=== PATIENT | male | born 1995 | race Caucasian/White ===

== ENCOUNTER 2018-08-18 08:45 | Emergency (ER) | payer OTHER ==
[~2018-08-18] VITALS: Ht 200.7 cm; Wt 93.0 kg
[2018-08-18] MEDS: LORazepam INJ 2 MG/ML (ATIVAN) VIAL IVP ONE (09:21)
[2018-08-18] MEDS: NS IV 1000 ML 1,000 ML IV STA (09:21)
[2018-08-18 09:27] LABS: BASOPHILS % (AUTO) 1 % (0-10); EOSINOPHILS # (AUTO) 0.3 10^3/uL (0.0-0.3); EOSINOPHILS % (AUTO) 5 % (0-10); HEMATOCRIT 42 % (35-52); HEMOGLOBIN 14.4 G/DL (11.5-16.0); LYMPHOCYTES # (AUTO) 1.7 X 10^3 (1.0-4.0); LYMPHOCYTES % (AUTO) 28 % (12-44); MEAN CORPUSCULAR HEMOGLOBIN 29 PG (25-34); MEAN CORPUSCULAR HGB CONC 34 G/DL (32-36); MEAN CORPUSCULAR VOLUME 85 FL (80-99); MEAN PLATELET VOLUME 8.6 FL (7.4-10.4); MONOCYTES # (AUTO) 0.5 X 10^3 (0.0-1.0); MONOCYTES % (AUTO) 8 % (0-12); NEUTROPHILS # (AUTO) 3.6 X 10^3 (1.8-7.8); NEUTROPHILS % (AUTO) 59 % (42-75); PLATELET COUNT 206 10^3/uL (130-400); RED CELL DISTRIBUTION WIDTH 12.3 % (10.0-14.5)
--- NOTE | 2018-08-18 09:38 | ED General ---
General Chief Complaint: Neurological Problems Stated Complaint: CONVULSIONS History of Present Illness Date Seen by Provider: Aug 18, 2018 Time Seen by Provider: 09:17 This is a 23-year-old male with a history of depression on venlafaxine for several months, here for trembling in the bilateral legs and back that began at work today. He had a "head cold" with nasal congestion and mild headache yesterday, not abrupt in onset, not "worst of life", not associated with visual change or focal weakness, numbness, or tingling. He took some Sudafed yesterday and last night he took NyQuil. Today he did not take any medications says he was feeling fine. He did have a monster energy drink however he has had caffeine in the past so this is not new for him. He started to feel like his knees were while blinding, he felt like he was having some spasms in the feet and the legs and in the back. He was not exerting himself at work, he was walking around and making doughnuts, he decided to sit down and rest, he had a Dr. Ritter. Ultimately came to the medical clinic and was brought to the emergency department. Now he is still having some spasms in his toes but otherwise he feels fine. He remains without any visual change or focal weakness , numbness, or tingling. No incontinence or retention of urine or stool. No headache or neck pain or back pain. In the last month he has not had any illnesses like her cough or diarrhea. He occasionally will have alcohol but denies chronic use, he also denies use of drugs, he also denies abrupt discontinuation of any drugs or alcohol. Allergies and Home Medications Allergies Coded Allergies: No Known Drug Allergies (Unverified , 08/18/18) Patient Home Medication List Home Medication List Reviewed: Yes Review of Systems Review of Systems Constitutional: no symptoms reported EENTM: no symptoms reported Respiratory: no symptoms reported Cardiovascular: no symptoms reported Gastrointestinal: no symptoms reported Genitourinary: no symptoms reported Musculoskeletal: no symptoms reported Skin: no symptoms reported Psychiatric/Neurological: See HPI Hematologic/Lymphatic: No Symptoms Reported Immunological/Allergic: no symptoms reported Past Qqlteiq-Jqgurp-Pjgins Hx Past Med/Social Hx: Reviewed Nursing Past Med/Soc Hx Physical Exam Vital Signs Vital Signs - First Documented 08/18/18 08:50 Temp 98.9 Pulse 101 Resp 15 B/P (MAP) 146/102 (117) Pulse Ox 100 O2 Delivery Room Air Capillary Refill : Height, Weight, BMI Height: '" Weight: lbs. oz. kg; BMI Method: General Appearance: No Apparent Distress (awake, alert, good energy level, no visible discomfort) Eyes: Bilateral Eye PERRL, Bilateral Eye EOMI HEENT: Other (moist mucous membranes, pharynx is minimally erythematous with no edema, ulcers or exudate) Neck: Full Range of Motion, Supple Respiratory: Lungs Clear; No Rales, No Rhonci, No Stridor, No Wheezing Cardiovascular: Regular Rate, Rhythm, Normal Peripheral Pulses Gastrointestinal: Non Tender, Soft Back: No Vertebral Tenderness Extremity: Non Tender Neurologic/Psychiatric: Alert, Oriented x3, No Motor/Sensory Deficits, Normal Mood/Affect, catering and events manager II-XII Norm as Tested; No Abnormal Cerebellar Tests, No Abnormal Gait (patient's nurse at observed some unsteadiness with gait however at the time of my evaluation patient is inability steadily without assistance); Other (there is no abnormal motor activity observed at this time, reflexes 2 out of 4 symmetrically) Skin: Warm/Dry Progress/Results/Core Measures Suspected Sepsis SIRS Temperature: Pulse: Respiratory Rate: Laboratory Tests 08/18/18 09:15: White Blood Count 6.0 Blood Pressure / Mean: Laboratory Tests 08/18/18 09:15: Creatinine 1.16, Platelet Count 206, Total Bilirubin 1.0 Results/Orders Lab Results Laboratory Tests Test 08/18/18 09:15 Range/Units White Blood Count 6.0 4.3-11.0 10^3/uL Red Blood Count 4.92 4.35-5.85 10^6/uL Hemoglobin 14.4 11.5-16.0 G/DL Hematocrit 42 35-52 % Mean Corpuscular Volume 85 80-99 FL Mean Corpuscular Hemoglobin 29 25-34 PG Mean Corpuscular Hemoglobin Concent 34 32-36 G/DL Red Cell Distribution Width 12.3 10.0-14.5 % Platelet Count 206 130-400 10^3/uL Mean Platelet Volume 8.6 7.4-10.4 FL Neutrophils (%) (Auto) 59 42-75 % Lymphocytes (%) (Auto) 28 12-44 % Monocytes (%) (Auto) 8 0-12 % Eosinophils (%) (Auto) 5 0-10 % Basophils (%) (Auto) 1 0-10 % Neutrophils # (Auto) 3.6 1.8-7.8 X 10^3 Lymphocytes # (Auto) 1.7 1.0-4.0 X 10^3 Monocytes # (Auto) 0.5 0.0-1.0 X 10^3 Eosinophils # (Auto) 0.3 0.0-0.3 10^3/uL Basophils # (Auto) 0.0 0.0-0.1 10^3/uL Sodium Level 142 135-145 MMOL/L Potassium Level 3.6 3.6-5.0 MMOL/L Chloride Level 100 98-107 MMOL/L Carbon Dioxide Level 26 21-32 MMOL/L Anion Gap 16 H 5-14 MMOL/L Blood Urea Nitrogen 10 7-18 MG/DL Creatinine 1.16 0.60-1.30 MG/DL Estimat Glomerular Filtration Rate 59 BUN/Creatinine Ratio 9 Glucose Level 86 70-105 MG/DL Calcium Level 9.5 8.5-10.1 MG/DL Corrected Calcium 8.5-10.1 MG/DL Magnesium Level 2.2 1.8-2.4 MG/DL Total Bilirubin 1.0 0.1-1.0 MG/DL Aspartate Amino Transf (AST/SGOT) 22 5-34 U/L Alanine Aminotransferase (ALT/SGPT) 20 0-55 U/L Alkaline Phosphatase 77 40-136 U/L Total Protein 7.3 6.4-8.2 GM/DL Albumin 5.0 H 3.2-4.5 GM/DL My Orders Orders - ELIZABETH CALERO DO Chest 1 View Ap/Pa Only (08/18/18 09:09) Cbc With Automated Diff (08/18/18 09:09) Comprehensive Metabolic Panel (08/18/18 09:09) Magnesium (08/18/18 09:09) Ns Iv 1000 Ml (Sodium Chloride 0.9%) (08/18/18 09:09) Lorazepam Injection (Ativan Injection) (08/18/18 09:15) Ct Head Wo (08/18/18 09:11) Ekg Tracing (08/18/18 11:52) Medications Given in ED Current Medications Medications Dose Ordered Sig/Lillian Route Start Time Stop Time Status Last Admin Dose Admin Lorazepam 1 mg ONCE ONCE IVP 08/18/18 09:15 08/18/18 09:16 DC 08/18/18 09:21 1 MG Vital Signs/I&O 08/18/18 08:50 Temp 98.9 Pulse 101 Resp 15 B/P (MAP) 146/102 (117) Pulse Ox 100 O2 Delivery Room Air Capillary Refill : Progress Note #1: Progress Note This is a well-appearing 23-year-old man with motor activity in the legs and back. No recent illnesses to suggest Guillain-Gavin. His presentation is not consistent with rhabdomyolysis. No abuse of ordered abrupt discontinuation of drugs or alcohol. He does take venlafaxine but he has been on his current dose for months apparently, this medication does list tremor as a possible side effect. ECGs shows sinus tachycardia with otherwise normal intervals. We are checking labs and electrolytes, I'm checking a CT of the brain and a chest x- ray. We are giving fluids, I also gave dose of 1 mg of Ativan. Progress Note #2: Progress Note Patient reports improvement by the time of my evaluation and then further improvement in the emergency department, he was asymptomatic for a period of observation. Of note patient's length of stay was prolonged secondary to his father trying to confirm that testing in the emergency department would be covered by the insurance company. Patient was comfortable going home and again is asymptomatic. He is awake and alert and ambulates steadily without assistance. His aunt is at the bedside. He was advised to call his primary care doctor today for the soonest available follow-up appointment, to avoid stimulant medication such as pseudoephedrine and caffeine, and to return immediately for any new or worsening symptoms. Departure Impression Primary Impression: Abnormal motor activity Additional Impression: Tachycardia Disposition: 01 HOME, SELF-CARE Condition: Stable Departure-Patient Inst. Patient Instructions: Apraxia (DC) ELIZABETH CALERO DO Aug 18, 2018 09:38
[2018-08-18 09:46] LABS: BUN/CREATININE RATIO 9; CHLORIDE 100 MMOL/L (98-107); CREATININE SERUM 1.16 MG/DL (0.60-1.30); GFR ESTIMATED 59; POTASSIUM 3.6 MMOL/L (3.6-5.0); SODIUM 142 MMOL/L (135-145)
[2018-08-18 09:47] LABS: ALANINE AMINOTRANSFERASE 20 U/L (0-55); ALKALINE PHOSPHATASE 77 U/L (40-136); CALCIUM 9.5 MG/DL (8.5-10.1); GLUCOSE 86 MG/DL (70-105); MAGNESIUM 2.2 MG/DL (1.8-2.4); TOTAL PROTEIN 7.3 GM/DL (6.4-8.2)
[2018-08-18 10:06] LABS: CARBON DIOXIDE 26 MMOL/L (21-32)
--- NOTE | 2018-08-18 11:02 | NUR ---
This RN was called into the patients room around 0920 and informed that he and his father had concerns about insurance paying for the order CT scan. I informed the patient that I had no knowledge about how much the imaging cost and didn't know about coverage for specific insurance providers. I then spoke to the patients father Shoaib and explained that he may want to contact the insurance company if he needed specific information. The patient and his father declined to have the diagnostic imaging perfomed at this time. Dr. Magana then spoke to Shoaib and explained that the CT was medically indicated but if concerned could check with the insurance company. After speaking to the insurance company Shoaib called this RN and requested that I call the insurance company for preauthorization. This RN explained to him that we do not typically do preauthorizations for emergency diagnositcs and we don't have anyone on staff that deals with insurance companies. Shoaib called back around 1100 and requested to speak with someone from case management I informed him that being a freestanding ER we do not have a case preparer and liner on staff. At this time he and his son consented to having the CT scan and x-ray perfomed.
--- NOTE | 2018-08-18 11:25 | Diagnostic Imaging Report ---
INDICATION: Convulsions. COMPARISON: None FINDINGS: Single frontal view of the chest demonstrates normal heart size and pulmonary vascularity. The lungs are well aerated and clear. No large pleural effusion or pneumothorax is seen. The visualized osseous structures show no acute abnormalities. IMPRESSION: 1. No acute cardiopulmonary process. Dictated by: Dictated on workstation # [id number]
--- NOTE | 2018-08-18 11:37 | Diagnostic Imaging Report ---
INDICATION: Convulsions TECHNIQUE: Routine non contrast-enhanced axial images were obtained from the skull base to the vertex. Auto Exposure Controls were utilized during the CT exam to meet ALARA standards for radiation dose reduction COMPARISON: None. FINDINGS: The ventricles and cortical sulci are normal in size and contour. There is no midline shift or mass-effect. No acute intra-axial hemorrhage is seen. There are no abnormal areas of increased or decreased density to suggest acute hemorrhage or edema. No extra-axial masses or collections are present. The bony calvarium is intact. The visualized paranasal sinuses are unremarkable. The mastoid air cells are clear. IMPRESSION: 1. No acute intracranial abnormality. No CT evidence of mass, acute infarct or intracranial hemorrhage. Dictated by: Dictated on workstation # [id number]
[2018-08-18 12:11] VITALS: BP 146/91
== END 2018-08-18 12:11 | disposition home or self-care (01) ==
LOC: ER FS 08:47 → EDSEX 08:47 → ER FS 12:11
DX: R25.9 Unspecified abnormal involuntary movements (principal); R00.0 Tachycardia, unspecified; F32.9 Major depressive disorder, single episode, unspecified
CPT/HCPCS: 36415; 70450; 71045; 80053; 83735; 85025; 93005

== ENCOUNTER → 2020-12-13 | Outpatient (CLI) | payer OTHER ==
--- NOTE | 2020-12-13 15:50 | Diagnostic Imaging Report ---
INDICATION: Syncope with trauma to the head. TECHNIQUE: Routine non contrast-enhanced axial images were obtained from the skull base to the vertex. Auto Exposure Controls were utilized during the CT exam to meet ALARA standards for radiation dose reduction COMPARISON: 08/18/2018. FINDINGS: The ventricles and cortical sulci are normal in size and contour. There is no midline shift or mass-effect. No acute intra-axial hemorrhage is seen. There are no abnormal areas of increased or decreased density to suggest acute hemorrhage or edema. No extra-axial masses or collections are present. The bony calvarium is intact. The visualized paranasal sinuses are unremarkable. The mastoid air cells are clear. IMPRESSION: 1. No acute intracranial abnormality. No CT evidence of mass, acute infarct or intracranial hemorrhage. Dictated by: Dictated on workstation # [id number]
== END ==
LOC: RAD FS 15:32
PROVIDERS: ATTEND Nurse Practitioner Family
DX: S09.90XA Unspecified injury of head, initial encounter (principal); X58.XXXA Exposure to other specified factors, initial encounter
CPT/HCPCS: 70450

== ENCOUNTER 2021-01-28 07:17 | Emergency (ER) | payer OTHER ==
[~2021-01-28] VITALS: Ht 195.6 cm; Wt 108.9 kg
--- OUTSIDE RECORDS SUMMARY | 2021-01-28 07:22 | XMS REPORT | Clinical Summary ---
Author Author [facility] Organization [facility] Address Unknown Phone Unavailable Care Team Providers Care Emissions Technician Name Role Phone PCP Unavailable Allergies No Known Active Allergies Medications Not on file Active Problems Not on file Social History Date Tobacco Use Types Packs/Day Years Used Never Smoker Smokeless Tobacco: Never Used Comments Alcohol Use Standard Drinks/Week Never 0 (1 standard drink = 0.6 o z pure alcohol) Alcohol Habits Answer Date Recorded How often do you have a drink containing alcohol? Never 10/10/2019 How many drinks containing alcohol do you have on No t asked a typical day when you are drinking? How often do you have six or more drinks on one Not asked occasion? Sex Assigned at Date Recorded Not on file Last Filed Vital Signs Reading Time Taken Comments Vital Sign 130/80 10/10/2019 4:46 PM CDT Blood Pressure 109 10/10/2019 3:01 PM CDT Pulse 36.8 C (98.3 F) 10/10/2019 3:01 PM CDT Temperature 20 10/10/2019 3:01 PM CDT Respiratory Rate 100% 10/10/2019 4:46 PM CDT Oxygen Saturation - - Inhaled Oxygen Concentration 104.3 kg (230 lb) 10/10/2019 3:01 PM CDT Weight 200.7 cm (6' 7") 10/10/2019 3:01 PM CDT Height 25.91 10/10/2019 3:01 PM CDT Body Mass Index Plan of Treatment Not on file Results Not on filefrom Last 3 Months Insurance Type Payer Benefit Subscriber ID Effective Phone Address Plan / Dates Group WORKERS COMPENSATION MISC WORK [id number] 2019 - COMP Present WORKERS COMPENSATION MISC WORK [id number] 2019 - COMP Present AETNA AETNA [id number] 2016-P LOCAL resent Advance Directives For more information, please contact: [phone] Patient Police Chief Explanation Type Date Recorded Health Care Directive
[2021-01-28] MEDS ORDERED: KETOROLAC 30 MG/ML VIAL IVP STA (07:36)
[2021-01-28] MEDS ORDERED: LACTATED RINGERS 1,000 ML IV STA (07:36)
[2021-01-28] MEDS ORDERED: ONDANSETRON 4 MG/2 ML (SDV) Z0FRAN IVP ONE (07:45)
--- NOTE | 2021-01-28 07:45 | ED Abdominal Pain ---
General Chief Complaint: Abdominal/GI Problems Stated Complaint: DIARRHEA; NAUSEA Nursing Triage Note: PT AMBULATE TO ROOM FS05 WITH C/O ABD PAIN, NAUSEA, AND DIARRHEA. PT REPORTS LOSS OF BOWEL CONTROL X2 RELATED TO DIARRHEA. Source of Information: Patient Exam Limitations: No Limitations History of Present Illness Date Seen by Provider: Jan 28, 2021 Time Seen by Provider: 07:27 Initial Comments Here with report of lower abdominal cramping, diarrhea, nausea, burping this morning but also noted a few days ago. Did have incontinence of diarrhea once this morning and once a few days ago. He is wondering if he may have food poisoning. He did state that he ate meatballs last night and could taste that when he was burping. Denies blood in his stool or urine. Denies dysuria. 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 Denies upper respiratory symptoms or concerns and is vaccinated for COVID-19. Timing/Duration: 3-4 Days, Intermittent Severity/Quality: Cramping Location: RLQ, LLQ, Suprapubic Radiation: No Radiation Activities at Onset: None Modifying Factors: Improves With Defecating; Worsens With Eating Associated Symptoms: No Back Pain, No Fever/Chills, No Fatigue, No Heartburn; Nausea/Vomiting; No Shortness of Air, No Swelling/Mass in Abdomen, No Weakness Allergies and Home Medications Allergies Coded Allergies: No Known Drug Allergies (Unverified , 08/18/18) Patient Home Medication List Home Medication List Reviewed: Yes Review of Systems Review of Systems Constitutional: see HPI; No chills, No fever EENTM: No Nose Congestion, No Nose Pain, No Throat Pain Respiratory: Denies Cough, Denies Shortness of Air Cardiovascular: Denies Chest Pain, Denies Edema Gastrointestinal: Abdominal Pain; Denies Blood Streaked Stools; Diarrhea, Nausea Genitourinary: Denies Hematuria, Denies Pain Musculoskeletal: no symptoms reported Skin: no symptoms reported Psychiatric/Neurological: No Symptoms Reported All Other Systems Reviewed Negative Unless Noted: Yes Past Xtvyffq-Knxzlb-Darqxl Hx Patient Social History Tobacco Use?: No Tobacco type used: Cigars Smoking Status: Former Smoker Smokeless Tobacco Frequency: Never a User Substance use?: No Alcohol Use?: No Pt feels they are or have been: No Immunizations Up To Date First/Initial COVID19 Vaccinat: 07/2020 Second COVID19 Vaccination Ronn: 08/2020 COVID19 Vaccine Correspondence Clerk: [facility] Seasonal Allergies Seasonal Allergies: Yes Past Medical History Surgeries: Yes (cyst removal on thumb) Orthopedic Respiratory: No Cardiac: No Neurological: No Genitourinary: No Gastrointestinal: No Musculoskeletal: No Endocrine: No HEENT: No Cancer: No Psychosocial: Yes Depression Blood Disorders: No Family Medical History Reviewed Nursing Family Hx No Pertinent Family Hx Physical Exam Vital Signs Vital Signs - First Documented 01/28/21 07:27 Temp 36.5 Pulse 90 Resp 18 B/P (MAP) 147/90 (109) O2 Delivery Room Air Capillary Refill : Less Than 3 Seconds Height/Weight/BMI Height: 6'7.00" Weight: 205lbs. oz. 92.147304lf; 28.00 BMI Method:Stated General Appearance: WD/WN, no apparent distress HEENT: PERRL/EOMI, pharynx normal Neck: full range of motion, supple Respiratory: lungs clear, normal breath sounds Cardiovascular: no murmur, tachycardia Gastrointestinal: soft, tenderness (Very mild in the area of the lower abdomen without rebound or guarding) Extremities: non-tender, normal inspection Back: normal inspection, no CVA tenderness, no vertebral tenderness Neurologic/Psychiatric: alert, oriented x 3 Skin: normal color, warm/dry Progress/Results/Core Measures Results/Orders Lab Results Laboratory Tests Test 01/28/21 07:35 01/28/21 07:39 Range/Units White Blood Count 6.8 4.3-11.0 10^3/uL Red Blood Count 4.83 4.30-5.52 10^6/uL Hemoglobin 14.1 13.3-17.7 g/dL Hematocrit 41 40-54 % Mean Corpuscular Volume 84 80-99 fL Mean Corpuscular Hemoglobin 29 25-34 pg Mean Corpuscular Hemoglobin Concent 35 32-36 g/dL Red Cell Distribution Width 12.5 10.0-14.5 % Platelet Count 243 130-400 10^3/uL Mean Platelet Volume 9.1 9.0-12.2 fL Immature Granulocyte % (Auto) 0 % Neutrophils (%) (Auto) 58 42-75 % Lymphocytes (%) (Auto) 28 12-44 % Monocytes (%) (Auto) 7 0-12 % Eosinophils (%) (Auto) 6 0-10 % Basophils (%) (Auto) 1 0-10 % Neutrophils # (Auto) 4.0 1.8-7.8 X 10^3 Lymphocytes # (Auto) 1.9 1.0-4.0 X 10^3 Monocytes # (Auto) 0.5 0.0-1.0 X 10^3 Eosinophils # (Auto) 0.4 H 0.0-0.3 10^3/uL Basophils # (Auto) 0.1 0.0-0.1 10^3/uL Immature Granulocyte # (Auto) 0.0 0.0-0.1 10^3/uL Sodium Level 142 135-145 MMOL/L Potassium Level 4.3 3.6-5.0 MMOL/L Chloride Level 103 98-107 MMOL/L Carbon Dioxide Level 27 21-32 MMOL/L Anion Gap 12 5-14 MMOL/L Blood Urea Nitrogen 12 7-18 MG/DL Creatinine 1.18 0.60-1.30 MG/DL Estimat Glomerular Filtration Rate 76 BUN/Creatinine Ratio 10 Glucose Level 81 70-105 MG/DL Calcium Level 9.6 8.5-10.1 MG/DL Corrected Calcium 8.5-10.1 MG/DL Total Bilirubin 0.7 0.1-1.0 MG/DL Aspartate Amino Transf (AST/SGOT) 28 5-34 U/L Alanine Aminotransferase (ALT/SGPT) 26 0-55 U/L Alkaline Phosphatase 92 40-136 U/L C-Reactive Protein 0.31 <0.50 MG/DL Total Protein 7.1 6.4-8.2 GM/DL Albumin 4.9 H 3.2-4.5 GM/DL Urine Color YELLOW Urine Clarity CLEAR Urine pH 6.0 5-9 Urine Specific L[place]ita 1.025 H 1.016-1.022 Urine Protein NEGATIVE NEGATIVE Urine Glucose (UA) NEGATIVE NEGATIVE Urine Ketones NEGATIVE NEGATIVE Urine Nitrite NEGATIVE NEGATIVE Urine Bilirubin NEGATIVE NEGATIVE Urine Urobilinogen 0.2 < = 1.0 MG/DL Urine Leukocyte Esterase NEGATIVE NEGATIVE Urine RBC (Auto) NEGATIVE NEGATIVE Urine RBC NONE /HPF Urine WBC 0-2 /HPF Urine Squamous Epithelial Cells 0-2 /HPF Urine Crystals NONE /LPF Urine Bacteria NEGATIVE /HPF Urine Casts NONE /LPF Urine Mucus SMALL H /LPF Urine Culture Indicated NO My Orders Orders - MARIAMA AGUIRRE MD Cbc With Automated Diff (01/28/21 07:36) Comprehensive Metabolic Panel (01/28/21 07:36) Ua Culture If Indicated (01/28/21 07:36) Crp Fs (01/28/21 07:36) Ondansetron Injection (Zofran Injectio (01/28/21 07:45) Lactated Ringers (Lr 1000 Ml Iv Solution (01/28/21 07:36) Ed Iv/Invasive Line Start (01/28/21 07:36) Ketorolac Injection (Toradol Injection) (01/28/21 07:36) Medications Given in ED Current Medications Medications Dose Ordered Sig/Lillian Route Start Time Stop Time Status Last Admin Dose Admin Ondansetron HCl 4 mg ONCE ONCE IVP 01/28/21 07:45 01/28/21 07:46 DC 01/28/21 07:43 4 MG Vital Signs/I&O 01/28/21 07:27 Temp 36.5 Pulse 90 Resp 18 B/P (MAP) 147/90 (109) O2 Delivery Room Air Blood Pressure Mean: 109 Progress Progress Note : Progress Note Seen and evaluated. IV, labs, UA, LR 1 L bolus, Toradol 30 mg IV and Zofran 4 mg IV ordered. Monitor patient. 0835: Pain-free and states he feels much better. Labs reviewed and do not show any significant abnormalities. We did discuss further evaluation. At this point I do not believe imaging is indicated given the normal labs and improved status overall and patient agrees. We did discuss outpatient therapy including clear a light diet and advancing as tolerated and follow-up with his doctor. If things persist, colonoscopy could be considered and this was discussed with the patient to discuss with his doctor. Discharged home with return precautions. Patient verbalized understanding of instructions and agreement with plan. Departure Impression Primary Impression: Abdominal pain Qualified Codes: R10.30 - Lower abdominal pain, unspecified Additional Impression: Diarrhea Qualified Codes: R19.7 - Diarrhea, unspecified Disposition: 01 HOME, SELF-CARE Condition: Improved Departure-Patient Inst. Decision time for Depature: 08:37 Referrals: EDGAR PEARL APRN (PCP) Primary Care Physician [facility] (Family) Primary Care Physician Patient Instructions: Severe Abdominal Pain, Adult (DC), Diarrhea in Adolescents and Adults Add. Discharge Instructions: All discharge instructions reviewed with patient and/or family. Voiced understanding. Clear or light diet for the next few days and then advance as tolerated. You may initiate [id number] probiotics per package directions. Drink plenty of fluids. Call make appointment with your doctor for later this week or early next week for recheck and further evaluation. Return for worse pain, fever, vomiting, blood in your stool, weakness or other concerns as needed. Work/School Note: Work Release Form Date Seen in the Emergency Department: Jan 28, 2021 Return to Work: Jan 29, 2021 Restrictions: No Restrictions Copy Copies To 1: JOHNY KEANE MD, TIMOTHY D MD Jan 28, 2021 07:45
[2021-01-28 07:48] LABS: BILIRUBIN,URINE NEGATIVE (NEGATIVE); CLARITY,URINE CLEAR; COLOR,URINE YELLOW; GLUCOSE, URINE (UA) NEGATIVE (NEGATIVE); KETONES,URINE NEGATIVE (NEGATIVE); LEUKOCYTE ESTERASE ,URINE NEGATIVE (NEGATIVE); NITRITE,URINE NEGATIVE (NEGATIVE); PROTEIN,URINE NEGATIVE (NEGATIVE)
[2021-01-28 08:02] LABS: BACTERIA,URINE NEGATIVE /HPF; SQUAMOUS EPITHELIAL CELL,UR 0-2 /HPF; WBC,URINE 0-2 /HPF
[2021-01-28 08:04] LABS: BASOPHILS # (AUTO) 0.1 10^3/uL (0.0-0.1); BASOPHILS % (AUTO) 1 % (0-10); EOSINOPHILS # (AUTO) 0.4 10^3/uL (0.0-0.3); EOSINOPHILS % (AUTO) 6 % (0-10); HEMATOCRIT 41 % (40-54); HEMOGLOBIN 14.1 g/dL (13.3-17.7); LYMPHOCYTES # (AUTO) 1.9 X 10^3 (1.0-4.0); LYMPHOCYTES % (AUTO) 28 % (12-44); MEAN CORPUSCULAR HEMOGLOBIN 29 pg (25-34); MEAN CORPUSCULAR HGB CONC 35 g/dL (32-36); MEAN CORPUSCULAR VOLUME 84 fL (80-99); MEAN PLATELET VOLUME 9.1 fL (9.0-12.2); MONOCYTES # (AUTO) 0.5 X 10^3 (0.0-1.0); MONOCYTES % (AUTO) 7 % (0-12); NEUTROPHILS % (AUTO) 58 % (42-75); PLATELET COUNT 243 10^3/uL (130-400); WHITE BLOOD COUNT 6.8 10^3/uL (4.3-11.0)
[2021-01-28 08:07] LABS: CHLORIDE 103 MMOL/L (98-107); SODIUM 142 MMOL/L (135-145)
[2021-01-28 08:08] LABS: ALANINE AMINOTRANSFERASE 26 U/L (0-55); ALBUMIN 4.9 GM/DL (3.2-4.5); ALKALINE PHOSPHATASE 92 U/L (40-136); BILIRUBIN,TOTAL 0.7 MG/DL (0.1-1.0); BUN/CREATININE RATIO 10; CALCIUM 9.6 MG/DL (8.5-10.1); CARBON DIOXIDE 27 MMOL/L (21-32); CREATININE SERUM 1.18 MG/DL (0.60-1.30); GFR ESTIMATED 76; GLUCOSE 81 MG/DL (70-105); TOTAL PROTEIN 7.1 GM/DL (6.4-8.2)
[2021-01-28 08:09] LABS: POTASSIUM 4.3 MMOL/L (3.6-5.0)
[2021-01-28 08:43] VITALS: BP 133/74
== END 2021-01-28 08:43 | disposition home or self-care (01) ==
LOC: EDUNIT# 07:17 → ER FS 07:19
DX: R10.31 Right lower quadrant pain (principal); R10.32 Left lower quadrant pain; R19.7 Diarrhea, unspecified; R00.0 Tachycardia, unspecified; Z87.891 Personal history of nicotine dependence
CPT/HCPCS: 36415; 80053; 81000; 85025; 86141

== ENCOUNTER 2021-05-06 10:17 | Emergency (ER) | payer OTHER ==
[~2021-05-06] VITALS: Ht 195.5 cm; Wt 108.9 kg
[2021-05-06 10:47] LABS: BASOPHILS % (AUTO) 1 % (0-10); EOSINOPHILS % (AUTO) 4 % (0-10); HEMATOCRIT 42 % (40-54); HEMOGLOBIN 14.3 g/dL (13.3-17.7); LYMPHOCYTES % (AUTO) 34 % (12-44); MEAN CORPUSCULAR HEMOGLOBIN 29 pg (25-34); MEAN CORPUSCULAR HGB CONC 34 g/dL (32-36); MEAN CORPUSCULAR VOLUME 84 fL (80-99); MEAN PLATELET VOLUME 9.1 fL (9.0-12.2); MONOCYTES % (AUTO) 6 % (0-12); PLATELET COUNT 276 10^3/uL (130-400); WHITE BLOOD COUNT 7.7 10^3/uL (4.3-11.0)
[2021-05-06 10:48] LABS: BASOPHILS # (AUTO) 0.1 10^3/uL (0.0-0.1); EOSINOPHILS # (AUTO) 0.3 10^3/uL (0.0-0.3); LYMPHOCYTES # (AUTO) 2.6 X 10^3 (1.0-4.0); MONOCYTES # (AUTO) 0.5 X 10^3 (0.0-1.0); NEUTROPHILS # (AUTO) 4.2 X 10^3 (1.8-7.8); NEUTROPHILS % (AUTO) 55 % (42-75)
[2021-05-06] MEDS ORDERED: KETOROLAC 30 MG/ML VIAL IVP STA (10:48)
[2021-05-06] MEDS ORDERED: ASPIRIN 81 MG CHEW (CHILDREN'S ASA) PO STA (10:48)
--- NOTE | 2021-05-06 10:56 | ED Chest Pain ---
General Chief Complaint: Chest Pain Stated Complaint: CHEST PAIN Nursing Triage Note: Patient presents to the ED with c/o left sided chest pain that radiates to his back and left arm numbness. Patient reports the pain began 1 hour prior to arrival when he was doing dishes. States that he has shortness of breathe and reports feeling "gassy". Source: patient Exam Limitations: no limitations History of Present Illness Date Seen by Provider: May 06, 2021 Time Seen by Provider: 10:39 Initial Comments Here with complaint of left arm pain that started in left hand around the thumb and then went to the elbow and subsequently went to the left side of the chest. Onset a little after 9 while he was at work at the [employer] shop. Also feels belchy but denies nausea or vomiting. Denies sweating. Does state that he has family history of heart disease starting in the 30s. He was worried that this is a precursor to a heart attack and presented for further evaluation. 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 States he drank a cup of coffee +2 other sports drinks with caffeine this morning. Feels like this might be part of the problem. Does admit to some reflux at times. Reports that he is trying to eat healthier. Has quit drinking alcohol and quit vaping marijuana or THC. Timing/Duration: 1-3 hours, changing over time Severity/Quality: moderate, aching Location: other (Left chest) Radiation: arms, shoulders Prior CP/Workup: no prior cardiac workup ASA po FLARE WORKER: No NTG SL FLARE WORKER: No Associated Symptoms: No abdominal pain, No back pain, No diaphoresis, No nausea/vomiting, No shortness of breath, No weakness Allergies and Home Medications Allergies Coded Allergies: No Known Drug Allergies (Unverified , 08/18/18) Patient Home Medication List Home Medication List Reviewed: Yes Review of Systems Review of Systems Constitutional: see HPI; No chills, No fever EENTM: No Symptoms Reported Respiratory: Denies Cough, Denies Shortness of Air Cardiovascular: Denies Chest Pain, Denies Edema Gastrointestinal: Denies Diarrhea, Denies Nausea, Denies Vomiting; Other (Belching) Genitourinary: No Symptoms Reported Musculoskeletal: No back pain; muscle pain Skin: No change in color, No lesions Psychiatric/Neurological: Anxiety; Denies Weakness All Other Systems Reviewed Negative Unless Noted: Yes Past Vxthkxg-Uqobko-Pljihq Hx Patient Social History Tobacco Use?: No Smoking Status: Former Smoker Use of E-Cig and/or Vaping dev: No Substance use?: No Alcohol Use?: No Pt feels they are or have been: No Immunizations Up To Date First/Initial COVID19 Vaccinat: 07/2020 Second COVID19 Vaccination Ronn: 08/2020 COVID19 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: [employer] Seasonal Allergies Seasonal Allergies: Yes Past Medical History Surgery/Hospitalization HX: Syncope; Depression Surgeries: Yes (cyst removal on thumb) Orthopedic Respiratory: No Cardiac: No Neurological: No Genitourinary: No Gastrointestinal: No Musculoskeletal: No Endocrine: No HEENT: No Cancer: No Psychosocial: Yes Depression Blood Disorders: No Family Medical History Reviewed Nursing Family Hx No Pertinent Family Hx Physical Exam Vital Signs Vital Signs - First Documented 05/06/21 10:17 Temp 36.2 Pulse 98 Resp 16 B/P (MAP) 144/91 (108) Pulse Ox 100 O2 Delivery Room Air Capillary Refill : Less Than 3 Seconds Height, Weight, BMI Height: 6'7.00" Weight: 205lbs. oz. 92.969003kp; 28.00 BMI Method:Stated General Appearance: No Apparent Distress, WD/WN HEENT: PERRL/EOMI, Pharynx Normal Neck: Non Tender, Supple Respiratory: Lungs Clear, Normal Breath Sounds Cardiovascular: Regular Rate, Rhythm, No Murmur Gastrointestinal: Non Tender, Soft Extremity: Normal Inspection, Normal Range of Motion, Non Tender, No Calf Tenderness Neurologic/Psychiatric: Alert, Oriented x3 Skin: Normal Color, Warm/Dry Progress/Results/Core Measures Results/Orders Lab Results Laboratory Tests Test 05/06/21 10:20 05/06/21 12:20 Range/Units White Blood Count 7.7 4.3-11.0 10^3/uL Red Blood Count 4.93 4.30-5.52 10^6/uL Hemoglobin 14.3 13.3-17.7 g/dL Hematocrit 42 40-54 % Mean Corpuscular Volume 84 80-99 fL Mean Corpuscular Hemoglobin 29 25-34 pg Mean Corpuscular Hemoglobin Concent 34 32-36 g/dL Red Cell Distribution Width 12.6 10.0-14.5 % Platelet Count 276 130-400 10^3/uL Mean Platelet Volume 9.1 9.0-12.2 fL Neutrophils (%) (Auto) 55 42-75 % Lymphocytes (%) (Auto) 34 12-44 % Monocytes (%) (Auto) 6 0-12 % Eosinophils (%) (Auto) 4 0-10 % Basophils (%) (Auto) 1 0-10 % Neutrophils # (Auto) 4.2 1.8-7.8 X 10^3 Lymphocytes # (Auto) 2.6 1.0-4.0 X 10^3 Monocytes # (Auto) 0.5 0.0-1.0 X 10^3 Eosinophils # (Auto) 0.3 0.0-0.3 10^3/uL Basophils # (Auto) 0.1 0.0-0.1 10^3/uL Prothrombin Time 13.4 12.2-14.7 SEC INR Comment 1.0 0.8-1.4 Activated Partial Thromboplast Time 28 24-35 SEC Sodium Level 139 135-145 MMOL/L Potassium Level 3.7 3.6-5.0 MMOL/L Chloride Level 99 98-107 MMOL/L Carbon Dioxide Level 27 21-32 MMOL/L Anion Gap 13 5-14 MMOL/L Blood Urea Nitrogen 13 7-18 MG/DL Creatinine 1.23 0.60-1.30 MG/DL Estimat Glomerular Filtration Rate 72 BUN/Creatinine Ratio 11 Glucose Level 74 70-105 MG/DL Calcium Level 9.8 8.5-10.1 MG/DL Corrected Calcium 8.5-10.1 MG/DL Magnesium Level 2.0 1.6-2.4 MG/DL Total Bilirubin 1.0 0.1-1.0 MG/DL Aspartate Amino Transf (AST/SGOT) 22 5-34 U/L Alanine Aminotransferase (ALT/SGPT) 23 0-55 U/L Alkaline Phosphatase 92 40-136 U/L Myoglobin 36.7 10.0-92.0 NG/ML Troponin I < 0.30 < 0.30 <0.30 NG/ML Total Protein 7.6 6.4-8.2 GM/DL Albumin 5.2 H 3.2-4.5 GM/DL Lipase 43 8-78 U/L My Orders Orders - MARIAMA AGUIRRE MD Cbc With Automated Diff (05/06/21 10:38) Magnesium (05/06/21 10:38) Chest 1 View Ap/Pa Only (05/06/21 10:38) Ekg Tracing (05/06/21 10:38) Comprehensive Metabolic Panel (05/06/21 10:38) Myoglobin Serum (05/06/21 10:38) Protime With Inr (05/06/21 10:38) Partial Thromboplastin Time (05/06/21 10:38) O2 (05/06/21 10:38) Monitor-Rhythm Ecg Trace Only (05/06/21 10:38) Lipid Panel (05/07/21 06:00) Ed Iv/Invasive Line Start (05/06/21 10:38) Troponin I Fs (05/06/21 10:38) Aspirin Chewable Tablet (Baby Aspirin Ch (05/06/21 10:48) Ketorolac Injection (Toradol Injection) (05/06/21 10:48) Lipase (05/06/21 10:48) Troponin I Daphne (05/06/21 12:22) Vital Signs/I&O 05/06/21 10:17 Temp 36.2 Pulse 98 Resp 16 B/P (MAP) 144/91 (108) Pulse Ox 100 O2 Delivery Room Air Blood Pressure Mean: 108 Progress Progress Note : Progress Note Seen and evaluated. IV, labs, EKG and chest x-ray ordered. ASA 324 mg p.o. and Toradol 30 mg IV. Overall things are much better now. I did talk to him about avoiding the high caffeine load that he is currently using. Monitor patient. 1200: We will repeat troponin. Initial set of labs is reassuring without concerns. We will repeat troponin at 1220. He is improved overall. 1325: Repeat troponin negative. Without significant symptoms. Discharged home with return precautions. Patient verbalized understanding instructions and agreement with plan. Initial ECG Impression Date: May 06, 2021 Initial ECG Impression Time: 10:13 Initial ECG Rate: 96 Initial ECG Rhythm: Normal Sinus Initial ECG Comparisson: Unchanged Comment Sinus rhythm with normal axis. No evidence of ST elevation [place]. Similar to previous of 08/18/2018. Interpreted by me. Diagnostic Imaging Diagonstic Imaging: Xray Plain Films/CT/US/NM/MRI: chest Comments [facility] [place], [place] NAME: NICK GRESHAM REC#: [id number] PT STATUS: REG ER : 1995 PHYSICIAN: MARIAMA AGUIRRE MD ADMIT DATE: 05/06/21/ER FS Signed Date of Exam:05/06/21 CHEST 1 VIEW AP/PA ONLY EXAMINATION: Chest 1 view HISTORY: chest pain COMPARISON: 08/18/2018 FINDINGS: Heart size and pulmonary vasculature are normal. The lungs are clear without consolidation, pleural effusion, or pneumothorax. The osseous structures are intact. IMPRESSION: 1. No acute radiographic abnormality in the chest. Dictated by: Dictated on workstation # [id number] Dict: 05/06/21 1059 Trans: 05/06/21 1130 [id number] Interpreted by: HILLARY BAPTISTE DO Electronically signed by: HILLARY BAPTISTE DO 05/06/21 1130 Departure Impression Primary Impression: Chest pain Qualified Codes: R07.9 - Chest pain, unspecified Disposition: HOME, SELF-CARE Condition: Improved Departure-Patient Inst. Decision time for Depature: 13:27 Referrals: EDGAR PEARL APRN (PCP) Primary Care Physician [facility] (Family) Primary Care Physician Patient Instructions: Chest Pain (DC) Add. Discharge Instructions: All discharge instructions reviewed with patient and/or family. Voiced understanding. You should avoid caffeine in your diet. Drink plenty of fluids otherwise. You may take Tylenol and/or ibuprofen as needed for muscle pain per package directions. You may take [id number] famotidine (Pepcid) or omeprazole per package directions for stomach problems. Follow-up with your doctor for recheck and further evaluation. Return for worse pain, fever, vomiting, weakness, breathing problems, chest pain or other concerns as needed. Copy Copies To 1: JOHNY KEANE MD, TIMOTHY D MD May 06, 2021 10:56
--- NOTE | 2021-05-06 11:01 | Diagnostic Imaging Report ---
EXAMINATION: Chest 1 view HISTORY: chest pain COMPARISON: 08/18/2018 FINDINGS: Heart size and pulmonary vasculature are normal. The lungs are clear without consolidation, pleural effusion, or pneumothorax. The osseous structures are intact. IMPRESSION: 1. No acute radiographic abnormality in the chest. Dictated by: Dictated on workstation # [id number]
[2021-05-06 11:09] LABS: PROTHROMBIN TIME PATIENT 13.4 SEC (12.2-14.7)
[2021-05-06 11:10] LABS: SODIUM 139 MMOL/L (135-145)
[2021-05-06 11:11] LABS: ALANINE AMINOTRANSFERASE 23 U/L (0-55); ALBUMIN 5.2 GM/DL (3.2-4.5); ALKALINE PHOSPHATASE 92 U/L (40-136); BUN/CREATININE RATIO 11; CALCIUM 9.8 MG/DL (8.5-10.1); CARBON DIOXIDE 27 MMOL/L (21-32); CHLORIDE 99 MMOL/L (98-107); CREATININE SERUM 1.23 MG/DL (0.60-1.30); GFR ESTIMATED 72; GLUCOSE 74 MG/DL (70-105); POTASSIUM 3.7 MMOL/L (3.6-5.0); TOTAL PROTEIN 7.6 GM/DL (6.4-8.2)
[2021-05-06 13:38] VITALS: BP 122/76
== END 2021-05-06 13:37 | disposition home or self-care (01) ==
LOC: EDUNIT# 10:17 → ER FS 10:18
DX: R07.89 Other chest pain (principal); F32.9 Major depressive disorder, single episode, unspecified; Z87.891 Personal history of nicotine dependence
CPT/HCPCS: 36415; 71045; 80053; 83690; 83735; 83874; 84484; 85025; 85610; 85730; 93005; 93041; 96374